=== PATIENT | male | born 2000 | race Caucasian/White ===

== ENCOUNTER 2020-12-11 22:38 | Emergency (ER) | payer OTHER ==
[~2020-12-11 22:38] MED LIST: ACHD5005 PO
[2020-12-11] MEDS ORDERED: LIDOCAINE 2% VISCOUS 15 ML UDC PO ONE (23:15)
[2020-12-11] MEDS ORDERED: ONDANSETRON 4 MG/2 ML (SDV) Z0FRAN IVP ONE (23:15)
[2020-12-11] MEDS ORDERED: ANTACID SUSP 30 ML UDC (MYLANTA) PO ONE (23:15)
[2020-12-12] MEDS ORDERED: FAMOTIDINE 20MG/2ML IV (PEPCID) IVP ONE
--- NOTE | 2020-12-12 00:08 | ED Chest Pain ---
General Chief Complaint: Chest Wall Stated Complaint: CP Source: patient Exam Limitations: no limitations History of Present Illness Date Seen by Provider: Dec 11, 2020 Time Seen by Provider: 22:44 Initial Comments This 20-year-old young man presents to the emergency room with complaints of central chest pain that started on December 06 while playing video games. He describes it as a heaviness and sometimes a sharp sensation. He reports this pain became "super bad heartburn" when he laid down that night. Since then it has been intermittent. He took omeprazole x1 which did not improve his pain. He reports some minor shortness of breath and dry cough since as well. He has been vaccinated for COVID-19 in June. He denies any change in taste or smell, fevers, chills, or headache. He also reports an episode of vomiting on December 07. He is not nauseous at this time. Allergies and Home Medications Allergies Coded Allergies: sulfamethoxazole (Verified Allergy, Mild, Nausea, 12/26/18) trimethoprim (Verified Allergy, Mild, Nausea, 12/26/18) Patient Home Medication List Home Medication List Reviewed: Yes Hydrocodone Bit/Acetaminophen (Lortab 5 Mg Tablet) 1 Tab Tab, 1 TAB PO Q6H PRN for PAIN-MODERATE Prescribed by: ILENE LEES on 12/26/18 1516 Review of Systems Review of Systems Constitutional: no symptoms reported EENTM: No Symptoms Reported Respiratory: See HPI Cardiovascular: No Symptoms Reported Gastrointestinal: See HPI Genitourinary: No Symptoms Reported Musculoskeletal: no symptoms reported Skin: no symptoms reported Psychiatric/Neurological: No Symptoms Reported Endocrine: No Symptoms Reported Hematologic/Lymphatic: No Symptoms Reported Past Kfpbvus-Sywsks-Ufgbxy Hx Patient Social History Tobacco Use?: No Substance use?: No Alcohol Use?: No Immunizations Up To Date Tetanus Booster (TDap): Less than 5yrs Second COVID19 Vaccination Junito: MAY 2020 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 oz. kg; 20.00 BMI Method: General Appearance: No Apparent Distress, WD/WN, Thin HEENT: Normal ENT Inspection, Pharynx Normal Neck: Normal Inspection Respiratory: Lungs Clear, Normal Breath Sounds, No Accessory Muscle Use, No Respiratory Distress Cardiovascular: Regular Rate, Rhythm, No Edema, No Murmur Gastrointestinal: Normal Bowel Sounds, Non Tender, Soft Extremity: Normal Inspection, Non Tender, No Pedal Edema Neurologic/Psychiatric: Alert, Oriented x3, No Motor/Sensory Deficits, Normal Mood/Affect, weather clerk II-XII Norm as Tested Skin: Normal Color, Warm/Dry Progress/Results/Core Measures Results/Orders Lab Results Laboratory Tests Test 12/11/20 23:13 Range/Units Influenza Type A Antigen NEGATIVE NEGATIVE Influenza Type B Antigen NEGATIVE NEGATIVE My Orders Orders - SINGH EL MD Coronavirus Sars-Cov-2 So 2019 (12/11/20 23:03) Influenza A & B Antigens (12/11/20 23:03) Ondansetron Injection (Zofran Injectio (12/11/20 23:15) Lidocaine 2% Viscous 15 Ml (Xylocaine Vi (12/11/20 23:15) Antacid Suspension (Mylanta Suspension (12/11/20 23:15) Famotidine Injection (Pepcid Injection) (12/12/20 00:00) Medications Given in ED Current Medications Medications Dose Ordered Sig/Fredy Route Start Time Stop Time Status Last Admin Dose Admin Al Hydrox/Mg Hydrox/Simethicone 30 ml ONCE ONCE PO 12/11/20 23:15 12/11/20 23:16 DC 12/11/20 23:08 30 ML Famotidine 20 mg ONCE ONCE IVP 12/12/20 00:00 12/12/20 00:01 DC 12/12/20 00:04 20 MG Lidocaine HCl 15 ml ONCE ONCE PO 12/11/20 23:15 12/11/20 23:16 DC 12/11/20 23:08 15 ML Ondansetron HCl 4 mg ONCE ONCE IVP 12/11/20 23:15 12/11/20 23:16 DC 12/11/20 23:08 4 MG Vital Signs/I&O 12/11/20 12/11/20 12/12/20 22:44 22:44 00:09 Temp 37.0 37.0 Pulse 76 65 Resp 20 16 B/P (MAP) 158/93 (114) 121/73 Pulse Ox 99 97 O2 Delivery Room Air Room Air Room Air Progress Progress Note : Progress Note EKG was unremarkable demonstrating a juvenile pattern with no acute ST elevation or depression. Zofran and a GI cocktail were administered. Patient noted a significant improvement in his pain with a GI cocktail stating it decreased from 5/10 down to 2/10. The history and nature of his pain seemed consistent with acid reflux. We discussed further evaluation with chest x-ray and labs. This work-up was offered to the patient. Since his history and response to the GI cocktail were suggestive of GERD, patient declined further work-up at this time. A dose of Pepcid was administered by his IV prior to discharge. Discharge instructions were reviewed. Because patient had a slight cough and slight shortness of breath, a Covid swab was obtained. He is to remain home from school and athletics until the result is known. Initial ECG Impression Date: Dec 12, 2020 Initial ECG Impression Time: 22:44 Initial ECG Rate: 82 Initial ECG Rhythm: Normal Sinus Comment Normal sinus rhythm with a juvenile pattern of early repolarization. No ischemic ST elevation or depression. No abnormal intervals. Possible LVH by automated read. Departure Impression Primary Impression: Atypical chest pain Additional Impressions: Cough Person under investigation for COVID-19 Disposition: 01 HOME, SELF-CARE Condition: Improved Departure-Patient Inst. Decision time for Depature: 00:01 Referrals: NO,LOCAL PHYSICIAN (PCP/Family) Primary Care Physician Patient Instructions: Chest Pain, Adult ED, Acid Reflux and GERD in Adults (DC) Add. Discharge Instructions: The nature of your chest pain is highly suggestive of acid reflux disease. This may have been worsened by a viral illness that is also causing your cough. Take omeprazole 20 mg twice a daily for at least 2 weeks. You may treat this even more aggressively by adding Pepcid (famotidine) 20 mg twice daily as well. Avoid the following: Eating large meals, eating close to bedtime, caffeine, carbonation, citrus fruits and juices, tomato products, chocolate, tobacco, alcohol, mints, spicy foods, fatty or greasy foods, NSAID medications such as ibuprofen or naproxen, or anything else you know irritates your stomach. Elevating your head when you lay down can also help with acid reflux. Call with questions or concerns. Follow-up with your primary care provider in 1 to 2 weeks. Return to the ER if you have worsening symptoms. All discharge instructions reviewed with patient and/or family. Voiced understanding. Work/School Note: School/Childcare Release Date Seen in the Emergency Department: Dec 12, 2020 Time Dismissed from Emergency Department: 00:20 Return to School: Dec 13, 2020 Other Restrictions Listed Below: Return to school, work, practice without restrictions if COVID negative. SINGH EL MD Dec 12, 2020 00:08
[2020-12-12 00:09] VITALS: BP 121/73
== END 2020-12-12 00:12 | disposition home or self-care (01) ==
LOC: EDUNIT# 22:38 → ER 22:40
DX: R07.89 Other chest pain (principal); R05.9 Cough, unspecified; Z20.822 Contact with and (suspected) exposure to COVID-19
CPT/HCPCS: 87635; 87804; 93005